=== PATIENT | male | born 1950 | race Caucasian/White ===

== ENCOUNTER → 2023-01-01 15:06 | Outpatient (REF) | payer MEDICARE, SELFPAY ==
--- NOTE | 2023-01-01 15:12 | CA_ITS ---
Transthoracic Echocardiogram Patient (Last, First, Middle): Andrea Waterman, Gender: Male Date of : 1950 Age: 72 Procedure Date: 01/01/2023 Procedure Type: Transthoracic Echocardiogram Location: OP Height: 190.5 cm Weight: 97.52 kg BSA: 2.26 m2 Heart Rate: bpm BP: 117 / 72 mmHg Senior Marketing Coordinator: CINDY Referring MD: Shila Gandara MD Symptoms: R06.00 [id number] Study Quality: Adequate ECG Rhythm: Atrial Fibrillation Conclusions: - The left ventricular systolic function is low normal. The visually estimated ejection fraction is between 50-55%. - Severely increased right ventricular cavity size. There is mildly decreased right ventricular systolic function - Severe biatrial enlargement. - No obvious valvular pathology seen on this study. Findings Left Ventricle Mildly increased left ventricular cavity size. There is mildly increased left ventricular wall thickness. The left ventricular systolic function is low normal. The visually estimated ejection fraction is between 50-55%. There is no evidence of regional wall motion abnormalities. Diastolic function is indeterminate on the basis of available data. Right Ventricle Severely increased right ventricular cavity size. There is mildly decreased right ventricular systolic function. Atria Severe biatrial enlargement. Aortic Valve There is a normal trileaflet aortic valve. There is mild calcification of the aortic valve. There is no aortic valve stenosis. There is no aortic valve regurgitation. Mitral Valve There is mild anterior mitral leaflet thickening. There is trace mitral valve regurgitation. There is no mitral valve stenosis. Pulmonic Valve The pulmonic valve is likely normal. Tricuspid Valve There is mild tricuspid valve regurgitation. There is no evidence of pulmonary hypertension. Great Vessels The asc aorta is normal in size. Small plaque is seen in the sino tubular ridge. Venous The inferior vena cava is dilated and collapses less than 50% with inspiration. Pericardium/Pleural There is no evidence of pericardial effusion. Prior Study Comparison No prior study available for comparison. Recommendations, Care & Conclusions No obvious valvular pathology seen on this study. Measurements 2D Linear Measurements IVSd: 1.01 0.6-0.9/0.6-1.0 cm LVIDd: 5.74 3.9-5.3/4.2-5.9 cm LVIDd Index: 2.54 2.4-3.2/2.2-3.1 cm/m2 LVIDs: 4.65 2.0-3.6 cm LVPWd: 1.20 0.7-1.1 cm LA Diam: 4.40 2.7-3.8/3.0-4.0 cm LAIDs Index: 1.95 1.5-2.3 cm/m2 LV Mass: 325.87 67-162/88-224 g LV Mass Index: 144.19 43-95/49-115 g/m2 LVOT Diam: 2.10 3.0+(-)1.3 cm 2D Systolic Function EF 4C: 56.00 >55% EF 2C: 57.90 >55% Mitral Valve MV Pk E: 0.89 MV Decel Time: 188.00 E'Lateral: 11.90 E'Medial: 10.30 E/E' Med: 8.60 E/E' Lat: 7.50 PHT: 55.00 MVA PHT: 4.[address] [place]: 4.84 Aortic Valve AoV Pk Javon: 1.61 AoV Pk Grad: 10.00 LVOT LVOT Pk Javon: 1.04 LVOT Pk Grad: 4.00 LVOT Diam: 2.10 LVOT Area: 3.46 Diastolic Function MV Pk E: 0.89 E'Medial: 10.30 E/E' Med: 8.60 E' Laterial: 11.90 E/E' Lat: 7.50 Right Ventricle TAPSE (mm): 17.50 TVS' Javon: 17.90 Tricuspid Valve TR Pk Javon: 2.66 TR Pk Grad: 28.00 Great Vessels Aorta Sinus of Valsalva: 3.47 2.0-3.[address] [place]: 2.77 1.7-3.4 cm Ao Asc: 3.20 2.1-3.4 cm Updated in Other Vendor System with Status of Final Clement Mclaughlin MD electronically signed on 01/02/2023 9:32:30 AM with status of Final
== END ==
LOC: HO.CARD 15:06
PROVIDERS: PCP Family Medicine; Referring Provider Internal Medicine Hematology; Visit Provider Family Medicine
DX: R06.00 Dyspnea, unspecified (principal)
CPT/HCPCS: 93306

== ENCOUNTER → 2023-01-01 15:12 | Outpatient (BNV) | payer MEDICARE, SELFPAY | PROVIDERS: PCP Family Medicine; Referring Provider Internal Medicine Hematology; Visit Provider Internal Medicine | DX: R06.00 Dyspnea, unspecified (principal) | CPT/HCPCS: 93306 ==